=== PATIENT | male | born 1950 | race Caucasian/White ===

== ENCOUNTER → 2022-04-23 | Day surgery (SDC) | payer MEDICARE, OTHER ==
[~2022-04-23] MED LIST: ASPIRIN 325 MG TAB PO PRN; ASPIRIN 81 MG ONE; SODIUM CHLORIDE 0.9% 1,000 ML in EMPTY BAG 1 BAG IV ONE
[2022-04-23 08:11] VITALS: BP 150/65; PULSE 85; RESP 18; TEMP 97.8
[2022-04-23 08:25] LABS: Basophils % (A) 1 %; Eosinophils % (A) 4 %; HCT 45.7 % (39.0-53.0); HGB 15.6 gm/dL (13.0-17.5); Lymphocytes # (A) 2.5 k/uL (1.0-4.8); Lymphocytes % (A) 27 %; MCH 30.1 pg (25.0-35.0); MCHC 34.1 g/dL (31.0-37.0); MCV 88.2 fL (80.0-100.0); Mean Platelet Volume 8.6; Monocytes % (A) 5 %; Neutrophils # (A) 5.6 k/uL (1.3-7.7); Neutrophils % (A) 60 %; Platelet Count 202 k/uL (150-450); RBC 5.18 m/uL (4.30-5.90); WBC 9.3 k/uL (3.8-10.6)
[2022-04-23 08:26] LABS: Basophils # (A) 0.1 k/uL (0-0.2); Eosinophils # (A) 0.4 k/uL (0-0.7); Monocytes # (A) 0.5 k/uL (0-1.0)
[2022-04-23 08:27] LABS: African American GFR (CKD) >90 (>60 ml/min/1.73 sqM); Anion Gap 8 mmol/L; Blood Urea Nitrogen 17 mg/dL (9-20); Calcium 8.7 mg/dL (8.4-10.2); Carbon Dioxide 26 mmol/L (22-30); Chloride 103 mmol/L (98-107); Glucose 131 mg/dL (74-99); Non-African American GFR(CKD) 85 (>60 ml/min/1.73 sqM); Sodium 137 mmol/L (137-145)
[2022-04-23 08:28] LABS: Potassium 4.3 mmol/L (3.5-5.1)
== END ==
LOC: CATHCVL 07:50
PROVIDERS: ATTEND Internal Medicine
DX: I70.213 Atherosclerosis of native arteries of extremities with intermittent claudication, bilateral legs (principal)
CPT/HCPCS: 80048; 85025

== ENCOUNTER 2022-04-24 08:35 | Day surgery (SDC) | payer MEDICARE, OTHER ==
[~2022-04-24 08:35] MED LIST changes: -ASPIRIN 325 MG TAB PO PRN; -ASPIRIN 81 MG ONE
[2022-04-24] MEDS ORDERED: SODIUM CHLORIDE 0.9% 1,000 ML IV ONE (08:45)
[2022-04-24] MEDS ORDERED: ASPIRIN 81 MG PO ONE (08:55)
[2022-04-24] MEDS: fentaNYL (PF) 50 MCG/ML 2 ML AMP IV ONE ×2 (10:15→11:16)
[2022-04-24] MEDS: MIDAZOLAM 2 MG/2 ML VIAL IV ONE ×2 (10:15→11:20)
[2022-04-24] MEDS ORDERED: LIDOCAINE 1% INJ 10MG/ML (30 ML VIAL-PF) SQ ONE (10:18)
[2022-04-24] MEDS: HEPARIN SODIUM 1,000 UN/ML (10ML VL) IV ONE ×2 (10:27→10:46)
[2022-04-24] MEDS ORDERED: CLOPIDOGREL 75 MG TAB PO ONE (11:26)
[2022-04-24] MEDS ORDERED: IOPAMIDOL-250 100ML BTL INTRAARTER ONE (11:27)
[2022-04-24] MEDS ORDERED: NALOXONE 0.4 MG/ML 1 ML VIAL IVP PRN (12:34)
--- NOTE | 2022-04-24 14:03 | P.PCN ---
Description of Procedure: PROCEDURES PERFORMED: Left lower extremity angiography, Penumbra aspiration thrombectomy, balloon angioplasty TP trun with a 3.0 balloon, Perclose, ultrasound guided access, Spider embolic protection device placement INDICATION: PAD with concern of thrombus, Petra class 3-4 symptoms HISTORY: Patient is a pleasant 71 year old male with history of PAD. He had a diagnostic angiogram which showed right common femoral artery 100% occlusion as well as left popliteal 100% occlusion with concern of more acute process and flow appearing more consistent with a thrombus. Therefore he was placed on Xarelto and repeat angiogram with intervention was recommended. CONSENT:I have discussed the risks, benefits and alternative therapies for the above-mentioned procedure and for both sedation/analgesia as well as necessary blood product administration, if indicated, as they pertain to this patient. The patient has indicated understanding and acceptance of the risks and procedures discussed. PROCEDURE: After the risks, benefits and alternatives of the above mentioned procedure explained in detail with the patient, informed consent was obtained. Patient was taken to the catheterization lab and prepped and draped in usual fashion. Given 100% right common femoral stenosis, decision was made to perform antegrade approach. A 7Fr sheath was placed in the left femoral artery using antegrade approach and micropuncture technique with ultrasound guidance. Angiogram did show improvement of flow since being on Xarelto however continued thrombus and 70% stenosis of the distal popliteal. Therefore a 4mm Spider catheter was placed in the left TP trunk with the wire in the PT artery. Next aspiration thrombectomy was performed with a 7Fr Penumbra catheter which did improve appearance of thrombus. There was still some stenosis of the TP trunk and therefore balloon angioplasty was performed with a 3.0 balloon. The wire was pulled and the Spider was retrieved. Final angiograms were performed. Pre intervention there was 70% stenosis with thrombus and unimpeded flow and post intervention there was <10% stenosis with unimpeded flow. A left femoral angiogram was performed and anatomoy was suitable for closure. A Perclose was deployed with hemostasis achieved. The patient tolerated the procedure well. Patient was transported back to the post catheterization holding area in stable condition. Conscious Sedation: Patient was monitored under the direct supervision of vision of myself for conscious sedation using Versed and fentanyl for a total duration of 62 minutes Left lower extremity: Left SFA: There is no significant stenosis. Left popliteal artery: There is 70% stenosis with radiolucency consistent with thrombus. Left tibioperoneal trunk: There is 70% stenosis. Left anterior tibial artery: There is mild 30% stenosis. Left porterior tibial artery: There is mild 30% stenosis. Left peroneal artery: There is mild 30% stenosis. FINAL IMPRESSION: 1. Peripheral arterial disease as described above with previous 100% popliteal stenosis, improved to 70% stenosis on current images concerning for thrombus and possible thromboembolism 2. S/p Penumbra aspiration thrombectomy and balloon angioplasty of left TP trunk with excellent result and 3 vessel runoff. PLAN: 1. Aggressive risk factor modification per most recent ACC/AHA guidelines. 2. Continue aspirin and Plavix for minimum of 1 month and ideally 3 months. He states he was taken off Plavix in the past secondary to anemia however goal minimum of 1 month. 3. Consider workup for Afib with findings consistent with thrombus and possible thromboembolism.
--- NOTE | 2022-04-24 14:20 | IR ---
EXAMINATION TYPE: IR user acceptance tester tibioperoneal branchs DATE OF EXAM: 04/24/2022 COMPARISON: NONE HISTORY: Fluoroscopy time. Fluoroscopy was provided to the referring clinician.
[2022-04-24] MEDS: SODIUM CHLORIDE 0.9% 1,000 ML IV SCH (19:46)
[2022-04-24 19:56] VITALS: RESP 18
[2022-04-24] MEDS ORDERED: carvediloL 12.5 MG TAB PO SCH (21:00)
[2022-04-25] MEDS: SODIUM CHLORIDE 0.9% 1,000 ML IV SCH (01:58)
[2022-04-25 07:56] LABS: Basophils # (A) 0.1 k/uL (0-0.2); Basophils % (A) 1 %; Eosinophils # (A) 0.3 k/uL (0-0.7); Eosinophils % (A) 3 %; HCT 41.7 % (39.0-53.0); HGB 14.1 gm/dL (13.0-17.5); Lymphocytes # (A) 2.3 k/uL (1.0-4.8); Lymphocytes % (A) 28 %; MCH 30.3 pg (25.0-35.0); MCHC 33.8 g/dL (31.0-37.0); MCV 89.8 fL (80.0-100.0); Mean Platelet Volume 8.4; Monocytes # (A) 0.6 k/uL (0-1.0); Monocytes % (A) 8 %; Neutrophils # (A) 4.7 k/uL (1.3-7.7); Neutrophils % (A) 59 %; Platelet Count 207 k/uL (150-450); RBC 4.64 m/uL (4.30-5.90); RDW 12.8 % (11.5-15.5); WBC 8.1 k/uL (3.8-10.6)
[2022-04-25 08:02] LABS: African American GFR (CKD) >90 (>60 ml/min/1.73 sqM); Anion Gap 5 mmol/L; Blood Urea Nitrogen 15 mg/dL (9-20); Calcium 8.2 mg/dL (8.4-10.2); Carbon Dioxide 24 mmol/L (22-30); Chloride 106 mmol/L (98-107); Glucose 117 mg/dL (74-99); Non-African American GFR(CKD) 83 (>60 ml/min/1.73 sqM); Potassium 4.6 mmol/L (3.5-5.1); Sodium 135 mmol/L (137-145)
[2022-04-25 08:40] VITALS: BP 161/72; PULSE 68; TEMP 98.1
[2022-04-25] MEDS ORDERED: CLOPIDOGREL 75 MG TAB PO SCH (09:00)
[2022-04-25] MEDS ORDERED: carvediloL 12.5 MG TAB PO SCH (09:00)
[2022-04-25] MEDS ORDERED: RIVAROXABAN 20 MG TAB PO SCH (09:00)
[2022-04-25] MEDS ORDERED: ATORVASTATIN 40 MG TAB PO SCH (09:00)
[2022-04-25] MEDS ORDERED: ASPIRIN 81 MG PO SCH (09:00)
--- NOTE | 2022-04-25 09:51 | P.DS ---
Providers Attending physician: Cecil Duran DO Primary care physician: [facility] Course: pleasant 71-year-old male who presented for elective left lower extremity angiography and intervention. He has been having increased left lower extremity pain and swelling over last month and a half and diagnostic catheterization showed occlusion of the left popliteal artery with concern of possible thrombus. Therefore he was briefly placed on Xarelto which did help with the thrombus burden however still had 70% stenosis by angiogram on 04/24. Therefore he underwent aspiration thrombectomy 04/24 with balloon angioplasty of the left TP trunk with excellent result. He was monitored overnight with no hematoma and vital signs stable. He will be discharged home on aspirin and Plavix for minimum of 1 month. Discussed with primary power bender operator regarding evaluation for possible atrial fibrillation or other etiology of thromboembolism as presentation somewhat concerning for thrombus. Plan - Discharge Summary New Discharge Prescriptions: New Clopidogrel [Plavix] 75 mg PO DAILY #90 tablet Continue Atorvastatin [Lipitor] 40 mg PO QAM Aspirin 162 mg PO DAILY carvediloL [Carvedilol] 25 mg PO DAILY captopriL [Capoten] 12.5 mg PO BID Discontinued carvediloL [Coreg] 12.5 mg PO HS Rivaroxaban [Xarelto] 20 mg PO DAILY #30 tab Discharge Medication List Aspirin 162 mg PO DAILY 01/31/14 [History] Atorvastatin [Lipitor] 40 mg PO QAM 01/31/14 [History] carvediloL [Carvedilol] 25 mg PO DAILY 01/31/14 [History] captopriL [Capoten] 12.5 mg PO BID 12/14/15 [History] Clopidogrel [Plavix] 75 mg PO DAILY #90 tablet 04/25/22 [Rx] Follow up Appointment(s)/Referral(s): Cecil Duran DO [STAFF PHYSICIAN] - 04/30/22 2:00 pm Patient Instructions/Handouts: Peripheral Vascular Disease (DC), Peripheral Vascular Angioplasty (GEN), Procedural Sedation (ED) Activity/Diet/Wound Care/Special Instructions: New Script for Plavix 75mg po daily given to patient Discontinue Xarelto
== END 2022-04-25 13:27 | disposition home or self-care (01) ==
LOC: CATHCVL 08:35 → 3SCARD 11:20 → CATHCVL 04-25 13:27
PROVIDERS: ATTEND Internal Medicine
DX: I73.9 Peripheral vascular disease, unspecified (principal); Z79.82 Long term (current) use of aspirin; Z79.01 Long term (current) use of anticoagulants
CPT/HCPCS: 80048; 85025; 37228; 37224; C1894; C1769 ×4; C1725; C1884; C1757; C1760; J2250; J2001; J3010; J1644; Q9966; 37184

== ENCOUNTER 2024-07-07 11:15 | Day surgery (SDC) | payer MEDICARE, OTHER ==
--- NOTE | 2024-07-05 20:40 | P.GSHP ---
History of Present Illness H&P Date: 07/05/24 Chief Complaint: Prostate Cancer The patient is a 73-year-old white male diagnosed with Angie 7 adenocarcinoma of the prostate in February 2024. He has elected to be treated with radiation therapy and will undergo SpaceOAR implant to reduce the risk of radiation- induced rectal toxicity. 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 no current residual. tinnitis bilaterally, back pain. arthritis in hands. current prostate cancer Last Myocardial Infarction Date:: 2010 History of Any Multi-Drug Resistant Organisms: None Reported Past Surgical History: AICD, Coronary Bypass/CABG, Heart Catheterization, Hernia Repair, Orthopedic Surgery Additional Past Surgical History / Comment(s): bilateral inguinal hernia repairs, RCE, colonoscopy, R eyebrow melanoma removed, R wrist tendon repair, rt elbow repair. ECHO angiogram. stent left leg Past Anesthesia/Blood Transfusion Reactions: No Reported Reaction Type of Cardiac Device: AICD Device Placement Date:: 2011 [employer] Smoking Status: Former smoker - Past Family History Mother Family Medical History: Congestive Heart Failure (CHF) Additional Family Medical History / Comment(s): Mother of CHF at the age of 83 yrs. Father Family Medical History: Cancer, Coronary Artery Disease (CAD) Additional Family Medical History / Comment(s): Father of lung cancer at the age of 76yrs. Medications and Allergies Home Medications Medication Instructions Recorded Confirmed Type Aspirin 162 mg PO DAILY 01/31/14 07/05/24 History Atorvastatin [Lipitor] 40 mg PO QAM 01/31/14 07/05/24 History carvediloL [Carvedilol] 25 mg PO DAILY 01/31/14 07/05/24 History captopriL [Capoten] 12.5 mg PO BID 12/14/15 07/05/24 History Albuterol Inhaler [Ventolin Hfa 1 - 2 puff INHALATION DIRECTED 07/05/24 07/05/24 History Inhaler] PRN Tamsulosin [Flomax] 0.4 mg PO HS 07/05/24 07/05/24 History metFORMIN HCL [Metformin HCl] 500 mg PO BID 07/05/24 07/05/24 History Allergies Allergy/AdvReac Type Severity Reaction Status Date / Time No Known Allergies Allergy Verified 07/05/24 11:55 Surgical - Exam - General well developed, well nourished, no distress - Respiratory normal respiratory effort - Genitourinary normal penis with no external lesions, testicles non-tender - Rectum Rectum: normal sphincter tone, no masses, other (Prostate mildly enlarged, firm but smooth) - Psychiatric oriented to time, oriented to person, oriented to place, speech is normal, memory intact Assessment and Plan (1) Malignant neoplasm of prostate Status: Acute Code(s): C61 - MALIGNANT NEOPLASM OF PROSTATE SNOMED Code(s): 417096740 Plan: The SpaceOar implant has been reviewed in detail with the patient. He understands that the rationale for this is to create separation between the prostate and rectum, thus reducing the risk of radiation proctitis. The material begins to breakdown 12-13 weeks following implant, and is reabsorbed by the body. Risks include anesthesia, bleeding, infection, and perineal discomfort. He understands that if the rectal wall is perforated the procedure will need to be aborted.
[2024-07-07] MEDS: IV FLUID CONTINUATION 1,000 ML IV ONE (10:02)
[~2024-07-07 11:15] MED LIST changes: +HYDROmorphone 0.5 MG/0.5 ML SYRINGE IVP PRN; +LIDOCAINE 1% (10MG/ML) FOR IV START INTRADERMA PRN; +MIDAZOLAM 2 MG/2 ML VIAL IV PRN; -SODIUM CHLORIDE 0.9% 1,000 ML in EMPTY BAG 1 BAG IV ONE; +fentaNYL (PF) 50 MCG/ML 2 ML AMP IVP PRN
[2024-07-07 12:03] LABS: Glucose,Whole Blood 151 mg/dL (70-110)
[2024-07-07 12:05] VITALS: TEMP 97.2
[2024-07-07] MEDS: LACTATED RINGERS 1,000 ML IV SCH (12:06)
[2024-07-07] MEDS: ONDANSETRON 4 MG/2 ML VIAL IVP ONE (12:09)
[2024-07-07] MEDS: DEXAMETHASONE SOD PHOSPHATE 4 MG/ML 1 ML VIAL IV ONE (12:09)
[2024-07-07] MEDS ORDERED: fentaNYL (PF) 50 MCG/ML 2 ML AMP ONE (13:00)
[2024-07-07] MEDS ORDERED: PROPOFOL 10 MG/ML 20 ML VIAL IV ONE (13:00)
[2024-07-07] MEDS ORDERED: MIDAZOLAM 2 MG/2 ML VIAL ONE (13:00)
[2024-07-07] MEDS ORDERED: LIDOCAINE 1% INJ 10MG/ML (20 ML MDV) ONE (13:00)
[2024-07-07] MEDS: LIDOCAINE 2% INJ 20 MG/ML SQ ONE ×2 (13:06→13:10)
--- NOTE | 2024-07-07 13:20 | P.OP ---
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 He has elected to be treated with radiation therapy and will undergo SpaceOAR implant to reduce the risk of radiation- induced rectal toxicity. Operative Findings: 13 mm separation created between prostate and rectum. Description of Procedure: The patient was taken to the operating room and placed in the dorsolithotomy position, with his legs supported in Sharad stirrups. The external genitalia was prepped and draped sterilely. The [employer] transrectal ultrasound probe was placed intrarectally. The prostate was imaged. The probe was then placed within the stabilizing stand. A spinal needle was advanced under ultrasonic guidance to the level of the urogenital diaphragm, and lidocaine was used to infiltrate the tissues as the needle was withdrawn. Next, the SpaceOAR needle was passed through the midline of the perineum, 1-2 cm anterior to the anal opening. The needle was slowly advanced under ultrasonic guidance until the needle tip was located within the fat plane between the prostate and rectum, at the level of the mid prostate gland. The needle was confirmed to be midline on the axial imaging. A small amount of normal saline was injected for hydrodissection. Next, the SpaceOAR components were mixed and loaded into the Y connector per protocol. The Y connector was then connected to the needle, and the components were injected slowly over a course of approximately 12 seconds. A total of 10 ml was injected. Significant distance was created between the prostate and rectum, as desired. It should be noted that at no point was there any concern of rectal perforation. The needle was withdrawn, as well as the transrectal ultrasound probe, and the procedure was terminated. The patient tolerated the procedure well and was taken to the recovery room in stable condition.
[2024-07-07 13:52] VITALS: BP 117/72; PULSE 74; RESP 16
[2024-07-07 15:11] LABS: Basophils # (A) 0.1 k/uL (0-0.2); Basophils % (A) 1 %; Eosinophils # (A) 0.2 k/uL (0-0.7); Eosinophils % (A) 2 %; HCT 45.6 % (39.0-53.0); HGB 15.2 gm/dL (13.0-17.5); Lymphocytes # (A) 1.9 k/uL (1.0-4.8); Lymphocytes % (A) 20 %; MCH 29.7 pg (25.0-35.0); MCHC 33.4 g/dL (31.0-37.0); MCV 88.8 fL (80.0-100.0); Monocytes # (A) 0.8 k/uL (0-1.0); Monocytes % (A) 8 %; Neutrophils # (A) 6.2 k/uL (1.3-7.7); Neutrophils % (A) 67 %; Platelet Count 262 k/uL (150-450); RBC 5.14 m/uL (4.30-5.90); RDW 13.1 % (11.5-15.5); WBC 9.3 k/uL (3.8-10.6)
== END 2024-07-07 14:07 | disposition home or self-care (01) ==
LOC: OR 11:15
PROVIDERS: ATTEND Urology
DX: C61 Malignant neoplasm of prostate (principal); I10 Essential (primary) hypertension; I25.10 Atherosclerotic heart disease of native coronary artery without angina pectoris; I25.2 Old myocardial infarction; Z95.1 Presence of aortocoronary bypass graft; E11.9 Type 2 diabetes mellitus without complications; E78.5 Hyperlipidemia, unspecified; J44.9 Chronic obstructive pulmonary disease, unspecified; K21.9 Gastro-esophageal reflux disease without esophagitis; Z79.82 Long term (current) use of aspirin; Z79.84 Long term (current) use of oral hypoglycemic drugs; Z79.899 Other long term (current) drug therapy; Z87.891 Personal history of nicotine dependence; Z86.73 Personal history of transient ischemic attack (TIA), and cerebral infarction without residual deficits; Z86.711 Personal history of pulmonary embolism; Z85.820 Personal history of malignant melanoma of skin; Z95.810 Presence of automatic (implantable) cardiac defibrillator
CPT/HCPCS: 85025; 55874; C1889; J2250; J1100; J0690; J2405; J2003 ×2; J3010; J2704

== ENCOUNTER → 2024-10-14 | Outpatient (CLI) | payer MEDICARE, OTHER | END | disposition home or self-care (01) | LOC: LABWHC1 12:15 | PROVIDERS: ATTEND Radiology Radiation Oncology | DX: C61 Malignant neoplasm of prostate (principal) | CPT/HCPCS: 36415; 84153 ==